=== PATIENT | female | born 1955 | race Caucasian/White ===

== ENCOUNTER → 2016-12-30 | Outpatient (CLI) | payer BC ==
[~2016-12-30] MED LIST: ASPIRIN EC81 MG PO; FOSAMAX70 MG PO; IPRAT-ALBUT 0.5-3 ML INH; NEURONTIN600 MG PO; NORVASC5 MG PO; PROAIR HFA8.5 GM INH; ROXICODONE 5MG (5 MG PO; ULTRAM50 MG PO
== END | disposition disaster alternative care site (69) ==
LOC: GKIC 11:15
DX: C50.411 Malignant neoplasm of upper-outer quadrant of right female breast (principal); C34.11 Malignant neoplasm of upper lobe, right bronchus or lung; C79.51 Secondary malignant neoplasm of bone; J06.9 Acute upper respiratory infection, unspecified; J98.11 Atelectasis
CPT/HCPCS: A9552